=== PATIENT | female | born 1950 | race Caucasian/White ===

== ENCOUNTER → 2017-05-24 | Outpatient (CLI) | payer OTHER ==
[~2017-05-24] MED LIST: LIDOCAINE 1%, 20ML ONE; OMNIPAQUE 180 MG/ML, 20ML VIAL ONE; ROPivacaine/PF 0.2%, 10 ML ONE; TRIAMCINOLONE ACETONIDE 40 MG/ML, 1ML ONE
== END | disposition home or self-care (01) ==
LOC: RAD 15:11
PROVIDERS: ATTEND Nurse Practitioner
DX: M19.072 Primary osteoarthritis, left ankle and foot (principal)
CPT/HCPCS: 77002; J2795; J3301; J3490; Q9965

== ENCOUNTER → 2017-11-20 | Outpatient (CLI) | payer MEDICARE ==
[~2017-11-20] MED LIST changes: -LIDOCAINE 1%, 20ML ONE; -OMNIPAQUE 180 MG/ML, 20ML VIAL ONE; +REGADENOSON 0.4 MG/5 ML SYRINGE ONE; -ROPivacaine/PF 0.2%, 10 ML ONE; -TRIAMCINOLONE ACETONIDE 40 MG/ML, 1ML ONE
== END | disposition home or self-care (01) ==
LOC: CFH 07:25
PROVIDERS: ATTEND Internal Medicine Cardiovascular Disease
DX: R07.9 Chest pain, unspecified (principal)
CPT/HCPCS: 78452; 93017; A9502; J2785

== ENCOUNTER → 2018-02-27 | Outpatient (CLI) | payer MEDICARE | END | disposition home or self-care (01) | LOC: CFH 13:04 | PROVIDERS: ATTEND Orthopaedic Surgery | DX: M19.072 Primary osteoarthritis, left ankle and foot (principal); M20.12 Hallux valgus (acquired), left foot; M25.775 Osteophyte, left foot; M79.89 Other specified soft tissue disorders ==

== ENCOUNTER 2018-04-02 10:06 | Inpatient (IN) | payer MEDICARE ==
[2018-04-01 10:42] VITALS: BP 149/69
[2018-04-01 10:42] LABS: BASOPHILS # (AUTO) 0.03 x10^3/uL (0-0.1); BASOPHILS % (AUTO) 1 % (0-1); EOSINOPHILS # (AUTO) 0.09 x10^3/uL (0-0.4); EOSINOPHILS % (AUTO) 2 % (1-7); LYMPHOCYTES % (AUTO) 38 % (22-44); MD NO; MEAN CORPUSCULAR HEMOGLOBIN 30.4 pg (27.0-34.8); MEAN CORPUSCULAR HGB CONC 33.7 g/dL (32.4-35.8); MEAN CORPUSCULAR VOLUME 90.4 fL (80-100); MEAN PLATELET VOLUME 7.7 fL (7.4-10.4); MONOCYTES # (AUTO) 0.48 x10^3/uL (0.2-0.8); MONOCYTES % (AUTO) 10 % (2-9); NEUTROPHILS # (AUTO) 2.54 x10^3/uL (1.8-6.8); NEUTROPHILS % (AUTO) 50 % (42-75); PLATELET COUNT 319 x10^3/uL (130-400); RED BLOOD COUNT 4.55 x10^6/uL (3.82-5.3); RED CELL DISTRIBUTION WIDTH 12.7 % (9.6-15.2)
[2018-04-01 10:53] LABS: ANION GAP 5 mmol/L (5-15); CALCIUM 9.1 mg/dL (8.5-10.1); CHLORIDE 107 mmol/L (98-107)
[2018-04-01 10:54] LABS: CREATININE 0.98 mg/dL (0.55-1.02)
[~2018-04-02] VITALS: Ht 162.6 cm; Wt 72.7 kg
[~2018-04-02 10:06] MED LIST changes: +ASPI-496 PO; +CALC-116 PO; +FISH1CAP PO; +FLAX1CAP PO; +GABA800T2 PO; +LEVO25TA2 PO; +LOSA1TAB25 PO; +METO25TA91 PO; +MULT-257 PO; -REGADENOSON 0.4 MG/5 ML SYRINGE ONE; +ROSU5TAB PO; +VITAMIN C PO; +VITAMIN D PO
[2018-04-02] MEDS ORDERED: SODIUM CHLORIDE 0.9% 1,000 ML IV ONE (10:18)
[2018-04-02] MEDS ORDERED: MIDAZOLAM 1 MG/ML, 5ML ONE (11:43)
[2018-04-02] MEDS ORDERED: FENTANYL PF 100 MCG/2ML ONE ×2 (11:43→12:16)
[2018-04-02] MEDS ORDERED: LIDOCAINE-MPF 2%, 2ML ONE (11:44)
[2018-04-02] MEDS ORDERED: NITROGLYCERIN 5 MG/ML, 10ML ONE (11:44)
[2018-04-02] MEDS ORDERED: BIVALIRUDIN 250 MG ONE (11:44)
[2018-04-02] MEDS ORDERED: HEPARIN 1,000 UNITS/ML, 10ML ONE (11:44)
[2018-04-02] MEDS ORDERED: VERAPAMIL 2.5 MG/ML, 2ML ONE (11:44)
[2018-04-02] MEDS ORDERED: DIPHENHYDRAMINE 50 MG/ML, 1ML ONE (12:16)
[2018-04-02] MEDS ORDERED: MIDAZOLAM 1 MG/ML, 2ML ONE (12:49)
[2018-04-02] MEDS ORDERED: PRASUGREL 10 MG TABLET ONE ×2 (12:54→13:03)
[2018-04-02] MEDS ORDERED: ONDANSETRON 2MG/ML, 2ML ONE (13:18)
[2018-04-02] MEDS ORDERED: BIVALIRUDIN 250 MG in DEXTROSE 5% 50 ML IV SCH (13:31)
[2018-04-02 13:52] VITALS: BP 124/80
[2018-04-02] MEDS ORDERED: ONDANSETRON 2MG/ML, 2ML IVPush PRN (14:00)
[2018-04-02] MEDS ORDERED: ZOLPIDEM 5MG TABLET PO PRN (14:00)
[2018-04-02] MEDS ORDERED: ACETAMINOPHEN 325 MG TABLET PO PRN (14:00)
[2018-04-02] MEDS: SODIUM CHLORIDE 0.9% 1,000 ML IV SCH ×2 (17:40→21:31)
[2018-04-02 18:32] VITALS: BP 148/76
[2018-04-02 19:58] LABS: TROPONIN I 0.112 ng/mL (0.000-0.045)
[2018-04-02] MEDS ORDERED: LOSARTAN 50MG TABLET PO SCH (21:00)
[2018-04-02] MEDS ORDERED: CRESTOR 5 MG HOMEMEDPO SCH (21:00)
[2018-04-02] MEDS ORDERED: HYDROCHLOROTHIAZIDE 12.5 MG CAPSULE PO SCH (21:00)
[2018-04-02] MEDS ORDERED: GABAPENTIN 400 MG CAPSULE PO SCH (21:00)
[2018-04-02] MEDS ORDERED: SIMVASTATIN 20 MG TABLET PO SCH (21:00)
[2018-04-02] MEDS ORDERED: METOPROLOL SUCCINATE 25 MG TAB.ER.24H PO SCH (21:00)
[2018-04-02 21:25] VITALS: BP 148/78
[2018-04-03 00:45] VITALS: BP 120/66
[2018-04-03 05:11] LABS: ALBUMIN 3.5 g/dL (3.4-5.0); ANION GAP 5 mmol/L (5-15); CHLORIDE 110 mmol/L (98-107)
[2018-04-03 05:14] LABS: CREATININE 0.75 mg/dL (0.55-1.02)
[2018-04-03] MEDS ORDERED: LEVOTHYROXINE 25 MCG TABLET PO SCH (06:00)
[2018-04-03 07:44] VITALS: BP 129/74
[2018-04-03] MEDS ORDERED: METOPROLOL TARTRATE 25 MG TABLET ONE (07:58)
[2018-04-03 08:04] VITALS: BP 127/76
[2018-04-03] MEDS ORDERED: MAGNESIUM SULFATE PMX 2GM/50ML 50 ML IV ONE (08:30)
[2018-04-03] MEDS ORDERED: OMEGA3 PO SCH (09:00)
[2018-04-03] MEDS ORDERED: FLAXSEED PO SCH (09:00)
[2018-04-03] MEDS ORDERED: PRASUGREL 10 MG TABLET PO SCH (09:00)
[2018-04-03] MEDS ORDERED: METOPROLOL SUCCINATE 25 MG TAB.ER.24H PO SCH (09:00)
[2018-04-03] MEDS ORDERED: GABAPENTIN 400 MG CAPSULE PO SCH (09:00)
[2018-04-03] MEDS ORDERED: FATTY ACID PO SCH (09:00)
[2018-04-03] MEDS ORDERED: [UNRECOGNIZED DRUG - OTHER] PO SCH (09:00)
[2018-04-03] MEDS ORDERED: HYDROCHLOROTHIAZIDE 12.5 MG CAPSULE PO SCH (09:00)
[2018-04-03] MEDS ORDERED: OMEGA-3/FISH OIL CAPSULE PO SCH (09:00)
[2018-04-03] MEDS ORDERED: MULTIVITAMIN 1 TABLET PO SCH (09:00)
[2018-04-03] MEDS ORDERED: LOSARTAN 50MG TABLET PO SCH (09:00)
[2018-04-03] MEDS ORDERED: ASPIRIN 81 MG TABLET EC PO SCH ×2 (09:00)
[2018-04-03] MEDS ORDERED: CALCIUM/VITAMIN D3 250-125 TABLET PO SCH (09:00)
[2018-04-03 14:14] VITALS: BP 136/77
[2018-04-03] MEDS ORDERED: METO50TA4 PO (14:36)
[2018-04-03] MEDS ORDERED: PRAS10TA4 PO (15:39)
== END 2018-04-03 16:32 | disposition home or self-care (01) | DRG 246 ==
LOC: CACL 10:06 → 5SO 13:21 → OBSVTOIN 13:31 → CACL 13:31 → 5SO 13:31 → DCLOUNGE 04-03 16:03
PROVIDERS: ADMIT Internal Medicine Cardiovascular Disease; ATTEND Internal Medicine Cardiovascular Disease
PROC: 027034Z Dilation of Coronary Artery, One Artery with Drug-eluting Intraluminal Device, Percutaneous Approach (ICD-10-PCS; principal; 2018-04-02)
PROC: 4A023N7 Measurement of Cardiac Sampling and Pressure, Left Heart, Percutaneous Approach (ICD-10-PCS; 2018-04-02)
PROC: B2151ZZ Fluoroscopy of Left Heart using Low Osmolar Contrast (ICD-10-PCS; 2018-04-02)
PROC: B240ZZ3 Ultrasonography of Single Coronary Artery, Intravascular (ICD-10-PCS; 2018-04-02)
PROC: B2111ZZ Fluoroscopy of Multiple Coronary Arteries using Low Osmolar Contrast (ICD-10-PCS; 2018-04-02)
DX: R07.89 Other chest pain (principal); I50.33 Acute on chronic diastolic (congestive) heart failure; E66.9 Obesity, unspecified; E78.5 Hyperlipidemia, unspecified; I10 Essential (primary) hypertension; I44.7 Left bundle-branch block, unspecified; M19.90 Unspecified osteoarthritis, unspecified site; E03.9 Hypothyroidism, unspecified; E78.00 Pure hypercholesterolemia, unspecified; G44.209 Tension-type headache, unspecified, not intractable; Z87.891 Personal history of nicotine dependence; Z95.5 Presence of coronary angioplasty implant and graft; Z68.27 Body mass index [BMI] 27.0-27.9, adult
CPT/HCPCS: 36415; 80048; 82040; 83735; 84484; 85014; 85018; 85025; 92978; 93005; 93458; 99156; 99157; C1753; C1769; C1894; C9600; J0583; J1644; J2250; J3010; J3490; C1874; C1887; J1200; J3475; Q9967

== ENCOUNTER → 2018-06-19 | Outpatient (CLI) | payer MEDICARE ==
[~2018-06-19] MED LIST changes: +LIDOCAINE-MPF 2%, 2ML ONE; +METO50TA4 PO; +PRAS10TA4 PO; +ROPivacaine/PF 0.2%, 10 ML ONE; +TRIAMCINOLONE ACETONIDE 40 MG/ML, 1ML ONE
== END | disposition home or self-care (01) ==
LOC: RAD 08:49
PROVIDERS: ATTEND Nurse Practitioner
DX: M19.072 Primary osteoarthritis, left ankle and foot (principal)
CPT/HCPCS: 20605; 77002; J2795; J3301; J3490

== ENCOUNTER → 2018-09-26 | Outpatient (CLI) | payer MEDICARE ==
[~2018-09-26] MED LIST changes: +BUPIVACAINE/PF 0.5% ONE; +LIDOCAINE-MPF 1%, 5ML ONE; -LIDOCAINE-MPF 2%, 2ML ONE; -ROPivacaine/PF 0.2%, 10 ML ONE
== END | disposition home or self-care (01) ==
LOC: RAD 14:06
PROVIDERS: ATTEND Nurse Practitioner
DX: M19.072 Primary osteoarthritis, left ankle and foot (principal)
CPT/HCPCS: 20605; 77002; J3301; J3490